=== PATIENT | female | born 1965 | race Caucasian/White ===

== ENCOUNTER 2018-11-30 17:43 | Inpatient (IN) | payer MEDICARE, OTHER ==
[~2018-11-30] VITALS: Ht 154.9 cm; Wt 76.7 kg
[2018-11-30 20:18] VITALS: BP 155/63
[2018-11-30] MEDS ORDERED: ACETAMINOPHEN 325 MG TABLET. PO PRN (21:00)
[2018-11-30] MEDS ORDERED: DEXTROSE 50% 25 GM / 50ML DISP.SYRIN. IV PRN (21:00)
[2018-11-30] MEDS: VANCOMYCIN PER PHARMACY MC PRN (21:02)
[2018-11-30] MEDS: fentaNYL PF VIAL 100 MCG/2 ML VIAL IV PRN (21:47)
[2018-11-30] MEDS: INSULIN GLARGINE 300 UNITS/3 ML INSULN.PEN. SQ SCH (21:53)
[2018-11-30] MEDS: MEROPENEM 1 GM in IV NORMAL SALINE 100ML 100 ML IV SCH (21:54)
[2018-11-30 22:46] LABS: HEMATOCRIT 31.2 % (36.0-47.0); HEMOGLOBIN 10.6 g/dL (12.0-15.5); RED BLOOD COUNT 3.68 x10^6/uL (3.50-5.40); RED CELL DISTRIBUTION WIDTH 13.8 % (11.5-14.5); WHITE BLOOD COUNT 9.8 x10^3/uL (4.0-11.0)
[2018-11-30 22:51] VITALS: BP 140/69
[2018-11-30 22:58] LABS: ALBUMIN 1.7 g/dL (3.4-5.0); ALBUMIN/GLOBULIN RATIO 0.3 (1.0-1.7); CALCIUM 8.1 mg/dL (8.5-10.1); GFR 57.6; TOTAL BILIRUBIN 0.3 mg/dL (0.2-1.0); TOTAL PROTEIN 6.6 g/dL (6.4-8.2)
[2018-12-01 02:46] VITALS: BP 150/70
[2018-12-01 05:54] LABS: CREATININE 0.8 mg/dL (0.6-1.0); GFR 74.5; VANC TR 12.8 mcg/mL (10.0-20.0)
[2018-12-01] MEDS: MEROPENEM 1 GM in IV NORMAL SALINE 100ML 100 ML IV SCH ×3 (06:01→20:10)
[2018-12-01] MEDS: VANCOMYCIN PER PHARMACY MC PRN ×2 (06:06→10:58)
--- NOTE | 2018-12-01 06:11 | NUR ---
Pharmacy Vancomycin Dosing Note S: Consulted to monitor and dose vancomycin started 11/29/18. O: TARAH ONEAL is a 53 year old F with Cellulitis THIGH ABSCESS . Other Antibiotics: MEROPENEM 1GM IV Q8H LABS: Last BUN: 21 Last Creatinine: 0.8 Creatinine Clearance: 74.6 mL/min Last WBC: 9.8 Last Platelets: Tmax (past 24 hours): 98.8 Microbiology: 11/29 BLOOD: NO GROWTH I/O: 1100/- Drug Levels: Last Trough level: 12.8 on 12/01/18 at 0500 Last dose given 11/30/18 at 1725 Vancomycin Dosing: Dosing Weight: Actual Target Trough: 10-20 A: Based on: Trough, Actual Wt and Improved CrCl P: 1. 12/01/18 Continue Vancomycin 1250 mg IV q12h 2. Follow up Trough level in 5 to 7 days as needed 3. Pharmacy will continue to monitor, follow and adjust therapy as needed. MANDEEP PALACIOS RPH, 12/01/18 0611 Signed: 12/01/18 at 0612 by MANDEEP PALACIOS RPH PHA
[2018-12-01] MEDS: fentaNYL PF VIAL 100 MCG/2 ML VIAL IV PRN ×3 (06:16→14:06)
[2018-12-01] MEDS: VANCOMYCIN 1.25 GM in IV NORMAL SALINE 250ML 250 ML IV SCH ×2 (06:17→18:23)
[2018-12-01 07:00] VITALS: BP 143/68
--- NOTE | 2018-12-01 07:14 | NUR ---
pt arrived from [place] at 2018, pt admit care done, refused pic taken of her abscess area, pt requested pic taken after shower in am, at 5am shower set up for pt and staff offered production assistant so she can be clean for possible procedure this am, pt refused again both bath and pic taken, RN re educated pt , still refused will have doc talk to her this am.
[2018-12-01] MEDS: INSULIN LISPRO 300 UNITS/3 ML INSULN.PEN. SQ SCH ×3 (08:00→17:00)
--- NOTE | 2018-12-01 08:10 | PDOC2 ---
JOVAN AVILA CLINICAL NURSING ASSISTANT 12/01/18 0810: CONSULT Date of Consult Date of Consult DATE: 12/01/18 TIME: 07:59 Reason for Consult Reason for Consult: thigh abscess Referring Physician Referring Physician: Dr Mullen Identification/Chief Complaint Chief Complaint abscess Source Source: Chart review, Patient History of Present Illness Reason for Visit: She was transferred from [facility] with abscess to left thigh and significant rash to extremities Abscess to left thigh for a week-- drains foul purulent drainage off and on. Has had problems with abscesses in past Past Medical History Pulmonary: Asthma, Other (sleep apnea) GI: Other (Hep B) Musculoskeletal: low back pain Rheumatologic: Fibromyalgia Renal/: UTI Endocrine: Diabetes Past Surgical History Past Surgical History: No pertinent history Family History Family History: Family History Unknown Social History <1 pack per day Drugs: Crystal meth Current Medications Current Medications Current Medications Fentanyl Citrate (Fentanyl 2ml Vial) 50 mcg PRN Q2HR PRN IV PAIN Last administered on 12/01/18at 06:16; Start 11/30/18 at 20:45 Vancomycin HCl (Vanco Per Pharmacy) 1 each PRN DAILY PRN MC SEE COMMENTS Last administered on 12/01/18at 06:06; Start 11/30/18 at 20:45 Ondansetron HCl (Zofran) 4 mg PRN Q6HRS PRN IV NAUSEA/VOMITING; Start 11/30/18 at 20:45 Vancomycin HCl (Vancomycin Trough Level) 1 each 1X ONCE MC Last administered on 12/01/18at 05:00; Start 12/01/18 at 05:00; Stop 12/01/18 at 05:01; Status DC Vancomycin HCl 1.25 gm/Sodium Chloride 250 ml @ 167 mls/hr Q12H IV Last administered on 12/01/18at 06:17; Start 12/01/18 at 05:30 Insulin Glargine (Lantus) 10 units QHS SQ Last administered on 11/30/18at 21:53 ; Start 11/30/18 at 22:00 Insulin Human Lispro (HumaLOG) 0-7 UNITS TIDWMEALS SQ ; Start 12/01/18 at 08:00 Dextrose (Dextrose 50%-Water Syringe) 12.5 gm PRN Q15MIN PRN IV SEE COMMENTS; Start 11/30/18 at 21:00 Meropenem 1 gm/ Sodium Chloride 100 ml @ 200 mls/hr Q8HRS IV Last administered on 12/01/18at 06:01; Start 11/30/18 at 22:00 Acetaminophen (Tylenol) 650 mg PRN Q6HRS PRN PO PAIN; Start 11/30/18 at 21:00 Allergies Allergies: Coded Allergies: Penicillins (Verified Allergy, Intermediate, 11/30/18) amoxicillin (Verified Allergy, Intermediate, 11/30/18) codeine (Verified Allergy, Intermediate, 11/30/18) ROS General: No: Chills, Other (fevers) PSYCHOLOGICAL ROS: No: Anxiety, Depression Eyes: No Blurry vision, No Double vision HEENT: No: Heacaches, Sore Throat Hematological and Lymphatic: No: Bleeding Problems, Blood Clots Respiratory: No: Cough, Shortness of breath Cardiovascular: No Chest Pain, No Palpitations Gastrointestinal: No Vomiting, No Diarrhea Genitourinary: No Dysuria, No Hematuria Musculoskeletal: Yes Muscle Pain Skin: Yes Other (see hpi) Physical Exam General: Oriented X3, No acute distress, Other (diffuse purple lesion rash ) HEENT: PERRLA Lungs: Clear to auscultation, Normal air movement Heart: Regular rate, Normal S1, Normal S2, No murmurs Abdomen: Soft, No tenderness Extremities: No clubbing, No cyanosis Skin: Other (left inner thigh with erythema, induration, fluctuance) Neuro: Normal speech, Sensation intact Psych/Mental Status: Mental status NL, Mood NL Vitals VITALS Vital Signs Date Time Temp Pulse Resp B/P (MAP) Pulse Ox O2 Delivery O2 Flow Rate FiO2 12/01/18 07:00 98.4 82 16 143/68 (93) 97 Room Air 98.4 Labs Labs Laboratory Tests Test 11/30/18 21:01 11/30/18 22:10 12/01/18 05:10 Glucose (Fingerstick) 255 mg/dL (70-99) White Blood Count 9.8 x10^3/uL (4.0-11.0) Red Blood Count 3.68 x10^6/uL (3.50-5.40) Hemoglobin 10.6 g/dL (12.0-15.5) Hematocrit 31.2 % (36.0-47.0) Mean Corpuscular Volume 85 fL (79-100) Mean Corpuscular Hemoglobin 29 pg (25-35) Mean Corpuscular Hemoglobin Concent 34 g/dL (31-37) Red Cell Distribution Width 13.8 % (11.5-14.5) Platelet Count 261 x10^3/uL (140-400) Sodium Level 134 mmol/L (136-145) Potassium Level 4.0 mmol/L (3.5-5.1) Chloride Level 99 mmol/L (98-107) Carbon Dioxide Level 26 mmol/L (21-32) Anion Gap 9 (6-14) Blood Urea Nitrogen 21 mg/dL (7-20) Creatinine 1.0 mg/dL (0.6-1.0) 0.8 mg/dL (0.6-1.0) Estimated GFR (Cockcroft-Gault) 57.6 74.5 BUN/Creatinine Ratio 21 (6-20) Glucose Level 273 mg/dL (70-99) Calcium Level 8.1 mg/dL (8.5-10.1) Total Bilirubin 0.3 mg/dL (0.2-1.0) Aspartate Amino Transf (AST/SGOT) 22 U/L (15-37) Alanine Aminotransferase (ALT/SGPT) 21 U/L (14-59) Alkaline Phosphatase 120 U/L (46-116) Total Protein 6.6 g/dL (6.4-8.2) Albumin 1.7 g/dL (3.4-5.0) Albumin/Globulin Ratio 0.3 (1.0-1.7) Vancomycin Level Trough 12.8 mcg/mL (10.0-20.0) Vancomycin Last Dose Date 11/30/18 Vancomycin Last Dose Time 1718 Laboratory Tests Test 11/30/18 21:01 11/30/18 22:10 12/01/18 05:10 Glucose (Fingerstick) 255 mg/dL (70-99) White Blood Count 9.8 x10^3/uL (4.0-11.0) Red Blood Count 3.68 x10^6/uL (3.50-5.40) Hemoglobin 10.6 g/dL (12.0-15.5) Hematocrit 31.2 % (36.0-47.0) Mean Corpuscular Volume 85 fL (79-100) Mean Corpuscular Hemoglobin 29 pg (25-35) Mean Corpuscular Hemoglobin Concent 34 g/dL (31-37) Red Cell Distribution Width 13.8 % (11.5-14.5) Platelet Count 261 x10^3/uL (140-400) Sodium Level 134 mmol/L (136-145) Potassium Level 4.0 mmol/L (3.5-5.1) Chloride Level 99 mmol/L (98-107) Carbon Dioxide Level 26 mmol/L (21-32) Anion Gap 9 (6-14) Blood Urea Nitrogen 21 mg/dL (7-20) Creatinine 1.0 mg/dL (0.6-1.0) 0.8 mg/dL (0.6-1.0) Estimated GFR (Cockcroft-Gault) 57.6 74.5 BUN/Creatinine Ratio 21 (6-20) Glucose Level 273 mg/dL (70-99) Calcium Level 8.1 mg/dL (8.5-10.1) Total Bilirubin 0.3 mg/dL (0.2-1.0) Aspartate Amino Transf (AST/SGOT) 22 U/L (15-37) Alanine Aminotransferase (ALT/SGPT) 21 U/L (14-59) Alkaline Phosphatase 120 U/L (46-116) Total Protein 6.6 g/dL (6.4-8.2) Albumin 1.7 g/dL (3.4-5.0) Albumin/Globulin Ratio 0.3 (1.0-1.7) Vancomycin Level Trough 12.8 mcg/mL (10.0-20.0) Vancomycin Last Dose Date 11/30/18 Vancomycin Last Dose Time 1718 Assessment/Plan Assessment/Plan left thigh abscess, likely will require I&D--will review with Dr Abebe, yessica NPO diffuse rash-derm consulted + meth use FRANCA ABEBE MD 12/01/18 1342: CONSULT Assessment/Plan Assessment/Plan Pt seen and examined; pt is 53 year old female who was transferred due to a left thigh abscess. She states it developed a week ago. The patient is unpleasant and angry about restating her history. She is refusing further discussion; PMH/PSH/ROS/SH as above; exam: alert, hostile, L thigh with induration, pain, swelling. A/P) L thigh abscess, recommend I and D in the OR. JOVAN AVILA APRN Dec 01, 2018 08:10 FRANCA ABEBE MD Dec 01, 2018 13:42
--- NOTE | 2018-12-01 08:38 | PDOC ---
Infectious Disease Note Vital Sign Vital Signs Vital Signs Date Time Temp Pulse Resp B/P (MAP) Pulse Ox O2 Delivery O2 Flow Rate FiO2 12/01/18 08:00 Room Air 12/01/18 07:00 98.4 82 16 143/68 (93) 97 98.4 Labs Lab Laboratory Tests Test 11/30/18 21:01 11/30/18 22:10 12/01/18 05:10 12/01/18 08:16 Glucose (Fingerstick) 255 mg/dL (70-99) 240 mg/dL (70-99) White Blood Count 9.8 x10^3/uL (4.0-11.0) Red Blood Count 3.68 x10^6/uL (3.50-5.40) Hemoglobin 10.6 g/dL (12.0-15.5) Hematocrit 31.2 % (36.0-47.0) Mean Corpuscular Volume 85 fL (79-100) Mean Corpuscular Hemoglobin 29 pg (25-35) Mean Corpuscular Hemoglobin Concent 34 g/dL (31-37) Red Cell Distribution Width 13.8 % (11.5-14.5) Platelet Count 261 x10^3/uL (140-400) Sodium Level 134 mmol/L (136-145) Potassium Level 4.0 mmol/L (3.5-5.1) Chloride Level 99 mmol/L (98-107) Carbon Dioxide Level 26 mmol/L (21-32) Anion Gap 9 (6-14) Blood Urea Nitrogen 21 mg/dL (7-20) Creatinine 1.0 mg/dL (0.6-1.0) 0.8 mg/dL (0.6-1.0) Estimated GFR (Cockcroft-Gault) 57.6 74.5 BUN/Creatinine Ratio 21 (6-20) Glucose Level 273 mg/dL (70-99) Calcium Level 8.1 mg/dL (8.5-10.1) Total Bilirubin 0.3 mg/dL (0.2-1.0) Aspartate Amino Transf (AST/SGOT) 22 U/L (15-37) Alanine Aminotransferase (ALT/SGPT) 21 U/L (14-59) Alkaline Phosphatase 120 U/L (46-116) Total Protein 6.6 g/dL (6.4-8.2) Albumin 1.7 g/dL (3.4-5.0) Albumin/Globulin Ratio 0.3 (1.0-1.7) Vancomycin Level Trough 12.8 mcg/mL (10.0-20.0) Vancomycin Last Dose Date 11/30/18 Vancomycin Last Dose Time 1718 Objective Assessment Left groin abscess Rash, ? vasculitis IVDU DM Fibromyalgia Plan Plan of Care vanc and meropenem I and D today supportive care ALLEN BA MD Dec 01, 2018 08:38
[2018-12-01] MEDS: ONDANSETRON PF 4 MG/2 ML VIAL. IV PRN (10:22)
[2018-12-01] MEDS ORDERED: IOHEXOL 300 MG/ML 100ML VIAL. IV ONE (10:45)
--- NOTE | 2018-12-01 10:56 | NUR ---
IP: Pt tx from [facility] with foul-smelling, draining thigh abscess. Pt to be in contact precautions until culture obtained and verified.
[2018-12-01 11:00] VITALS: BP 132/68
--- NOTE | 2018-12-01 11:20 | HP ---
ADMIT DATE: 12/01/2018 HISTORY OF PRESENT ILLNESS: The patient is a 53-year-old female patient who presented to Emergency Room of [facility] complaining of right thigh abscesses with new onset of rash. The patient has had intermittent abscess with drainage on her left upper thigh for at least several days. When she arrived to the Emergency Room, she had one of them draining with foul-smelling odor. She states that she has these before. She has been diagnosed with MRSA in the past. Her other concern is that she developed a rash all over in her legs starting on the day of admission. It has involved her arms and extends her abdomen and back. It is red and purplish and confluent in some areas closer to the abscess, although it is not itchy. The patient has not been taking any medications. She is only using mouthwash and has not been on any prescribed or [id number] medications. She was admitted and was started on IV vancomycin as well as meropenem together with her insulin and pain medication. As it became clear that this abscess needed to be incised and drained, a decision was made to transfer her to [facility] to consult the surgical team, the Infectious Disease and for her to rash, it looks like target lesion or some form of erythema multiforme. We consulted Dr. Leslie Robbins. PAST MEDICAL HISTORY: Her past medical history is significant for type 2 diabetes mellitus that is insulin requiring. She has a previous episode of acute hepatitis B that was treated. She is also known to have bronchial asthma, osteoarthritis, fibromyalgia and peripheral neuropathy. PAST SURGICAL HISTORY: Significant for pilonidal cyst resection. ALLERGIES: SHE IS ALLERGIC TO PENICILLIN, AMOXICILLIN AND CODEINE. MEDICATIONS: She is transferred from [facility] to continue on vancomycin 1.25 g IV q.12 hourly, meropenem 1 gram IV q.8 hourly, Lantus insulin 10 units at bedtime, Tylenol 650 mg every 6 hours, ondansetron 4 mg IV every 4 hours and fentanyl citrate 50 mcg IV every 2 hours, together with insulin sliding scale. FAMILY HISTORY: She has one brother who is younger and seemingly healthy. Her father at the age of 39 because of infection and mother at age of 66 because of lung cancer. SOCIAL HISTORY: She is single, lives with a friend. She smokes only about 4-5 cigarettes a day. She does not drink alcohol or use any recreational drugs. She is on disability. REVIEW OF SYSTEMS: As per history of present illness. PHYSICAL EXAMINATION: GENERAL: When I examined her this morning, she was resting flat, comfortably in bed, in no apparent distress. She was complaining of nausea, but no vomiting. She apparently was seen by the surgical team and she was scheduled for incision and drainage of the left thigh abscesses. When I examined her, she looked pale, but not jaundiced or cyanosed from thyromegaly. No jugular venous distention. No lower limb edema. VITAL SIGNS: Her heart rate was 82, blood pressure was 143/68, temperature was 98.4, respiratory rate was 16 and oxygen saturation was 97%. HEENT: Examination of the head, eyes, ears, nose and throat showed normocephalic, atraumatic. NECK: Supple. HEART: Showed normal first and second heart sounds. No gallop, rub or murmur. CHEST: Clear to auscultation. No crepitation or rhonchi. ABDOMEN: Distended, soft and nontender. No guarding or rigidity. No organomegaly. All hernial orifices intact. Bowel sounds normal. NEUROLOGIC: She was awake, alert, responding appropriately. All cranial nerves intact. She moved extremities without difficulty. SKIN: Examination of the skin showed she has multiple abscesses on the upper inner aspect of her left thigh and she has diffuse maculopapular rash on her upper extremities and lower extremities. It is confluent on the medial aspect of the left thigh. The rash is extensive on the abdomen and her back. LABORATORY DATA: Her lab work showed a white cell count of 9800, hemoglobin 11, hematocrit 31, MCV 85 and platelet count 261,000. Her chemistry showed a serum sodium 134, potassium 4, chloride 99, bicarbonate 26, anion gap of 9, BUN 21, creatinine was 1, estimated GFR was 57, her blood sugar was 273 and calcium was 8.1. Total bilirubin, AST and ALT were normal. Alkaline phosphatase slightly elevated. Total protein was 6.6. Albumin was 1.7. Her vancomycin trough level was 12.8. SUMMARY: In summary, this is a 53-year-old female patient who was transferred from [facility] with left groin abscesses, for which she is on IV antibiotics in the form of vancomycin and meropenem. She is scheduled for incision and drainage by the surgical team. She has type 2 diabetes, fibromyalgia and bronchial asthma. She has extensive maculopapular rash that is confluent on the inner aspect of her left thigh. The patient's platelet counts are normal. Her kidney functions are also normal, so I am not sure whether this is a Henoch-Schonlein purpura or some other form of vasculitis, for which we have already consulted Dr. Leslie Robbins to assist with her management. ELEONORA GUERRA MD DR: KASSIDY/zohreh JOB#: [id number] / [id number]
[2018-12-01] MEDS ORDERED: ONDANSETRON PF 4 MG/2 ML VIAL. IV PRN ×2 (12:30→16:30)
[2018-12-01] MEDS ORDERED: LIDOCAINE 1%/EPI 1:100,000 20 ML VIAL. ONE (15:22)
[2018-12-01] MEDS ORDERED: fentaNYL PF VIAL 100 MCG/2 ML VIAL ONE ×2 (15:27→16:31)
[2018-12-01] MEDS ORDERED: LIDOCAINE 2% PF 5 ML VIAL. ONE (15:28)
[2018-12-01] MEDS ORDERED: DEXAMETHASONE SOD PHOS 20 MG/5 ML VIAL. ONE (15:28)
[2018-12-01] MEDS ORDERED: PROPOFOL 20 ML IV ONE (15:28)
[2018-12-01] MEDS ORDERED: ONDANSETRON PF 4 MG/2 ML VIAL. ONE (15:28)
--- NOTE | 2018-12-01 15:39 | NUR ---
Wound care; Pt is in surgery getting I&D, will follow up on 12/02/18
--- NOTE | 2018-12-01 16:21 | PDOC4 ---
Operative Note Operative Note Operative Note: Preoperative Diagnosis: Left thigh abscess Postoperative Diagnosis: Same Procedure: Incision and drainage of left thigh abscess Surgeon: Andrae Anesthesia: Gen. EBL: 25 mL Specimen: Cultures to microbiology Drains: None Complications: None Indication: The patient is a 53 female who reported with a sizable left thigh abscess. The plan is to proceed to the operating room for incision and drainage. The details and risks of surgery were discussed. The risks include bleeding, infection, recurrence, pain, scar tissue, potential need for additional surgery or procedure. She understands and would like to proceed. Description: The patient was taken to the operating room and placed supine on the operating table. Gen. anesthesia was performed. The left thigh was prepped with Betadine and draped in a standard surgical manner. Along the proximal medial aspect there was a sizable area of induration. Close to the labia there was a portion of the skin that'll had ulcerated and was draining purulent fluid. Cultures of the fluid were obtained and sent to microbiology. Over a larger area of induration an incision was made with a scalpel. There was return of additional purulent fluid. The abscess cavity was fully drained and then irrigated with sterile saline. Hemostasis was achieved with cautery. The wound was then packed with sterile gauze and a dressing was applied. The patient tolerated the procedure well and was sent to the recovery room in stable condition. At the end of the case all counts were correct. FRANCA BOBBY MD Dec 01, 2018 16:21
[2018-12-01] MEDS ORDERED: SEVOFLURANE 31 TO 60 MINUTES. IH ONE (16:25)
[2018-12-01] MEDS ORDERED: fentaNYL PF VIAL 100 MCG/2 ML VIAL IV PRN ×2 (16:30)
[2018-12-01] MEDS ORDERED: MORPHINE SULFATE 2 MG/ML VIAL. IV PRN (16:30)
[2018-12-01] MEDS ORDERED: IV RINGERS,LACTATED 1000ML 1,000 ML IV SCH (16:30)
[2018-12-01] MEDS ORDERED: PROCHLORPERAZINE 10 MG/2 ML VIAL. IV PRN (16:30)
[2018-12-01] MEDS ORDERED: HYDROmorphone 2 MG/ML VIAL IV PRN (16:30)
[2018-12-01] MEDS ORDERED: LIDOCAINE 1% PF 2 ML VIAL. ID PRN (16:30)
[2018-12-01] MEDS ORDERED: PROCHLORPERAZINE 10 MG/2 ML VIAL. ONE (16:31)
[2018-12-01] MEDS ORDERED: oxyCODONE/APAP 5/325 1 TAB TABLET PO PRN (16:45)
[2018-12-01] MEDS ORDERED: CONTRAST GIVEN. MC PRN (16:45)
--- NOTE | 2018-12-01 17:30 | NUR ---
Pt returning from PACU. Pt is A&O X4 but drowsy, IV fluids infusing, dressing CDI on left thigh. Pt denies pain. Water pitcher filled. Meal tray ordered. Call light within reach. Will continue to monitor.
[2018-12-01 19:00] VITALS: BP 157/59
[2018-12-01] MEDS: LACTOBACILLUS RHAMNOSUS GG 1 CAPSULE. PO SCH (20:10)
[2018-12-01] MEDS: INSULIN GLARGINE 300 UNITS/3 ML INSULN.PEN. SQ SCH (21:26)
[2018-12-01] MEDS ORDERED: INSULIN LISPRO 300 UNITS/3 ML INSULN.PEN. SQ ONE (21:30)
--- NOTE | 2018-12-01 22:17 | CONS ---
DATE OF CONSULTATION: 12/01/2018 REQUESTING PHYSICIAN: Dr. Mullen. REASON FOR CONSULTATION: Groin/thigh abscess. HISTORY OF PRESENT ILLNESS: This is a 53-year-old female with a history of drug use, who was transferred from [facility]. The patient was diagnosed having left thigh/groin abscess and I and D has been planned. This started about a week ago and she also started having rash a week ago she says without taking any medication. The patient denies any fever, chills, nausea, vomiting, diarrhea, chest pain, shortness of breath, abdominal pain, urinary symptoms or bowel symptoms. The patient has been on vancomycin and meropenem. PAST MEDICAL HISTORY: Positive for diabetes mellitus, fibromyalgia, history of UTI, low back pain, hepatitis B and asthma. SOCIAL HISTORY: Positive for smoking, positive for drug use including IV drug use with crystal meth and also smokes marijuana. No alcohol use. ALLERGIES: Listed as allergic to PENICILLIN or AMOXICILLIN, it causes yeast infection, that is not true allergy. CURRENT MEDICATIONS: Reviewed. The patient is on vancomycin and meropenem. REVIEW OF SYSTEMS: As per HPI, all other systems reviewed are negative. PHYSICAL EXAMINATION: GENERAL: Alert and oriented female, not in distress. VITAL SIGNS: Stable, afebrile. HEENT: NAD. NECK: Supple, no JVP, no lymphadenopathy. LUNGS: Clear. HEART: S1, S2 regular. ABDOMEN: Benign. EXTREMITIES: No edema, cyanosis. SKIN: The patient does have an erythematous rash all over the body, has a look of vasculitis. In the groin area, almost at the inguinal fold, just besides that anterior-superior proximal thigh, there is a large area of induration with tenderness. There is no pus pointing. There is no open area. NEUROLOGIC: Alert, awake female, no focal neurologic deficit. LABORATORY DATA: White count is normal. BUN and creatinine is normal. IMPRESSION: 1. Left inguinal, almost proximal, superior medial thigh on the left side skin and soft tissue infection with likely abscess. Incision and drainage has been planned for today. 2. Diffuse rash all over the place, which looks like vasculitis, multiple reasons for her to have rash including intravenous drug use. 3. Intravenous drug use with meth. 4. Diabetes. 5. Asthma. 6. Fibromyalgia. RECOMMENDATIONS: Recommend continuing vancomycin and meropenem for the time being. I and D today. We will check the culture, adjust, supportive care and we will continue to follow. Thank you very much, Dr. Mullen, for giving me the opportunity to participate in this patient's care. ALLEN BA MD DR: MARIELA/zohreh JOB#: [id number] / [id number]
[2018-12-01 22:27] VITALS: BP 164/53
[2018-12-02] MEDS: fentaNYL PF VIAL 100 MCG/2 ML VIAL IV PRN (00:28)
[2018-12-02] MEDS: ONDANSETRON PF 4 MG/2 ML VIAL. IV PRN (00:28)
[2018-12-02 02:44] VITALS: BP 166/69
[2018-12-02] MEDS: oxyCODONE/APAP 5/325 1 TAB TABLET PO PRN ×3 (03:49→17:29)
[2018-12-02] MEDS: VANCOMYCIN 1.25 GM in IV NORMAL SALINE 250ML 250 ML IV SCH ×2 (04:56→17:29)
[2018-12-02 05:35] LABS: CALCIUM 8.7 mg/dL (8.5-10.1); CREATININE 0.7 mg/dL (0.6-1.0); GFR 86.9; POTASSIUM 4.3 mmol/L (3.5-5.1)
[2018-12-02] MEDS: MEROPENEM 1 GM in IV NORMAL SALINE 100ML 100 ML IV SCH (06:09)
[2018-12-02 07:00] VITALS: BP 160/72
--- NOTE | 2018-12-02 07:38 | PDOC ---
PROGRESS NOTES Subjective Subjective sleeping but arouses, no major complaints Objective Objective Vital Signs Date Time Temp Pulse Resp B/P (MAP) Pulse Ox O2 Delivery O2 Flow Rate FiO2 12/02/18 04:49 20 98 Room Air 12/02/18 03:49 10.0 12/02/18 02:44 98.7 76 166/69 (101) 98.7 Intake and Output 12/02/18 07:00 Intake Total 450 ml Output Total 25 ml Balance 425 ml Intake Oral 450 ml Output Estimated Blood Loss 25 ml # Voids 1 Physical Exam Physical Exam dressing intact Plan Plan of Care Dressing changes per wound care team, await their FU today Comment Review of Relevant I have reviewed the following items brianna (where applicable) has been applied. Labs Laboratory Tests Test 11/30/18 21:01 11/30/18 22:10 12/01/18 05:10 12/01/18 08:16 Glucose (Fingerstick) 255 mg/dL (70-99) 240 mg/dL (70-99) White Blood Count 9.8 x10^3/uL (4.0-11.0) Red Blood Count 3.68 x10^6/uL (3.50-5.40) Hemoglobin 10.6 g/dL (12.0-15.5) Hematocrit 31.2 % (36.0-47.0) Mean Corpuscular Volume 85 fL (79-100) Mean Corpuscular Hemoglobin 29 pg (25-35) Mean Corpuscular Hemoglobin Concent 34 g/dL (31-37) Red Cell Distribution Width 13.8 % (11.5-14.5) Platelet Count 261 x10^3/uL (140-400) Sodium Level 134 mmol/L (136-145) Potassium Level 4.0 mmol/L (3.5-5.1) Chloride Level 99 mmol/L (98-107) Carbon Dioxide Level 26 mmol/L (21-32) Anion Gap 9 (6-14) Blood Urea Nitrogen 21 mg/dL (7-20) Creatinine 1.0 mg/dL (0.6-1.0) 0.8 mg/dL (0.6-1.0) Estimated GFR (Cockcroft-Gault) 57.6 74.5 BUN/Creatinine Ratio 21 (6-20) Glucose Level 273 mg/dL (70-99) Calcium Level 8.1 mg/dL (8.5-10.1) Total Bilirubin 0.3 mg/dL (0.2-1.0) Aspartate Amino Transf (AST/SGOT) 22 U/L (15-37) Alanine Aminotransferase (ALT/SGPT) 21 U/L (14-59) Alkaline Phosphatase 120 U/L (46-116) Total Protein 6.6 g/dL (6.4-8.2) Albumin 1.7 g/dL (3.4-5.0) Albumin/Globulin Ratio 0.3 (1.0-1.7) Vancomycin Level Trough 12.8 mcg/mL (10.0-20.0) Vancomycin Last Dose Date 11/30/18 Vancomycin Last Dose Time 1718 Test 12/01/18 11:24 12/01/18 15:42 12/01/18 17:57 12/01/18 20:36 Glucose (Fingerstick) 201 mg/dL (70-99) 231 mg/dL (70-99) 229 mg/dL (70-99) 359 mg/dL (70-99) Test 12/02/18 03:00 12/02/18 04:05 Sodium Level 133 mmol/L (136-145) Potassium Level 4.3 mmol/L (3.5-5.1) Chloride Level 98 mmol/L (98-107) Carbon Dioxide Level 25 mmol/L (21-32) Anion Gap 10 (6-14) Blood Urea Nitrogen 24 mg/dL (7-20) Creatinine 0.7 mg/dL (0.6-1.0) Estimated GFR (Cockcroft-Gault) 86.9 Glucose Level 346 mg/dL (70-99) Calcium Level 8.7 mg/dL (8.5-10.1) Glucose (Fingerstick) 315 mg/dL (70-99) Laboratory Tests Test 12/01/18 08:16 12/01/18 11:24 12/01/18 15:42 12/01/18 17:57 Glucose (Fingerstick) 240 mg/dL (70-99) 201 mg/dL (70-99) 231 mg/dL (70-99) 229 mg/dL (70-99) Test 12/01/18 20:36 12/02/18 03:00 12/02/18 04:05 Glucose (Fingerstick) 359 mg/dL (70-99) 315 mg/dL (70-99) Sodium Level 133 mmol/L (136-145) Potassium Level 4.3 mmol/L (3.5-5.1) Chloride Level 98 mmol/L (98-107) Carbon Dioxide Level 25 mmol/L (21-32) Anion Gap 10 (6-14) Blood Urea Nitrogen 24 mg/dL (7-20) Creatinine 0.7 mg/dL (0.6-1.0) Estimated GFR (Cockcroft-Gault) 86.9 Glucose Level 346 mg/dL (70-99) Calcium Level 8.7 mg/dL (8.5-10.1) Medications Current Medications Fentanyl Citrate (Fentanyl 2ml Vial) 50 mcg PRN Q2HR PRN IV PAIN Last administered on 12/02/18at 00:28; Start 11/30/18 at 20:45 Vancomycin HCl (Vanco Per Pharmacy) 1 each PRN DAILY PRN MC SEE COMMENTS Last administered on 12/01/18at 10:58; Start 11/30/18 at 20:45 Ondansetron HCl (Zofran) 4 mg PRN Q6HRS PRN IV NAUSEA/VOMITING Last administered on 12/02/18at 00:28; Start 11/30/18 at 20:45 Vancomycin HCl (Vancomycin Trough Level) 1 each 1X ONCE MC Last administered on 12/01/18at 05:00; Start 12/01/18 at 05:00; Stop 12/01/18 at 05:01; Status DC Vancomycin HCl 1.25 gm/Sodium Chloride 250 ml @ 167 mls/hr Q12H IV Last administered on 12/02/18at 04:56; Start 12/01/18 at 05:30 Insulin Glargine (Lantus) 10 units QHS SQ Last administered on 12/01/18at 21:26 ; Start 11/30/18 at 22:00 Insulin Human Lispro (HumaLOG) 0-7 UNITS TIDWMEALS SQ ; Start 12/01/18 at 08:00 Dextrose (Dextrose 50%-Water Syringe) 12.5 gm PRN Q15MIN PRN IV SEE COMMENTS; Start 11/30/18 at 21:00 Meropenem 1 gm/ Sodium Chloride 100 ml @ 200 mls/hr Q8HRS IV Last administered on 12/02/18at 06:09; Start 11/30/18 at 22:00 Acetaminophen (Tylenol) 650 mg PRN Q6HRS PRN PO PAIN; Start 11/30/18 at 21:00 Lactobacillus Rhamnosus (Culturelle) 1 cap BID PO Last administered on at 20:10; Start 12/01/18 at 21:00 Lidocaine/ Epinephrine (LIDOCAINE 1%-EPI 1:100,000 Multi-Dose) 20 ml STK-MED ONCE .ROUTE ; Start 12/01/18 at 15:22; Stop 12/01/18 at 15:23; Status DC Fentanyl Citrate (Fentanyl 2ml Vial) 100 mcg STK-MED ONCE .ROUTE ; Start at 15:27; Stop 12/01/18 at 15:28; Status DC Lidocaine HCl (Lidocaine Pf 2% Vial) 5 ml STK-MED ONCE .ROUTE ; Start 12/01/18 at 15:28; Stop 12/01/18 at 15:29; Status DC Propofol 20 ml @ As Directed STK-MED ONCE IV ; Start 12/01/18 at 15:28; Stop at 15:29; Status DC Ondansetron HCl (Zofran) 4 mg STK-MED ONCE .ROUTE ; Start 12/01/18 at 15:28; Stop 12/01/18 at 15:29; Status DC Dexamethasone Sodium Phosphate (Decadron) 20 mg STK-MED ONCE .ROUTE ; Start at 15:28; Stop 12/01/18 at 15:29; Status DC Oxycodone/ Acetaminophen (Percocet 5/325) 1 tab PRN Q4HRS PRN PO MODERATE PAIN Last administered on 12/02/18at 03:49; Start 12/01/18 at 16:30 Sevoflurane (Ultane) 30 ml STK-MED ONCE IH ; Start 12/01/18 at 16:25; Stop 12/01 at 16:26; Status DC Fentanyl Citrate (Fentanyl 2ml Vial) 100 mcg STK-MED ONCE .ROUTE ; Start at 16:31; Stop 12/01/18 at 16:32; Status DC Iohexol (Omnipaque 300 Mg/ml) 75 ml 1X ONCE IV ; Start 12/01/18 at 10:45; Stop 12/01/18 at 16:37; Status DC Ondansetron HCl (Zofran) 4 mg PRN Q8HRS PRN IV NAUSEA/VOMITING; Start 12/01/18 at 12:30; Stop 12/01/18 at 16:38; Status DC Ondansetron HCl (Zofran) 4 mg PRN Q6HRS PRN IV NAUSEA/VOMITING; Start 12/01/18 at 16:30; Stop 12/01/18 at 22:00; Status DC Fentanyl Citrate (Fentanyl 2ml Vial) 25 mcg PRN Q5MIN PRN IV MILD PAIN; Start 12/01/18 at 16:30; Stop 12/01/18 at 22:00; Status DC Fentanyl Citrate (Fentanyl 2ml Vial) 50 mcg PRN Q5MIN PRN IV MODERATE TO SEVERE PAIN Last administered on 12/01/18at 16:36; Start 12/01/18 at 16:30; Stop 12/01/18 at 22:00; Status DC Morphine Sulfate (Morphine Sulfate) 1 mg PRN Q10MIN PRN IV SEVERE PAIN; Start 12/01/18 at 16:30; Stop 12/01/18 at 16:44; Status DC Ringer's Solution 1,000 ml @ 30 mls/hr Q24H IV ; Start 12/01/18 at 16:30; Stop 12/02/18 at 04:29; Status DC Lidocaine HCl (Xylocaine-Mpf 1% 2ml Vial) 2 ml PRN 1X PRN ID PRIOR TO IV START ; Start 12/01/18 at 16:30; Stop 12/01/18 at 22:00; Status DC Hydromorphone HCl (Dilaudid) 0.5 mg PRN Q10MIN PRN IV SEV PAIN, Second choice; Start 12/01/18 at 16:30; Stop 12/01/18 at 16:44; Status DC Prochlorperazine Edisylate (Compazine) 5 mg PACU PRN PRN IV NAUSEA, MRX1 Last administered on 12/01/18at 16:36; Start 12/01/18 at 16:30; Stop 12/01/18 at 22:00 ; Status DC Oxycodone/ Acetaminophen (Percocet 5/325) 2 tab PRN Q4HRS PRN PO SEVERE PAIN; Start 12/01/18 at 16:45 Prochlorperazine Edisylate (Compazine) 10 mg STK-MED ONCE .ROUTE ; Start at 16:31; Stop 12/01/18 at 16:32; Status DC Info (CONTRAST GIVEN -- Rx MONITORING) 1 each PRN DAILY PRN MC SEE COMMENTS; Start 12/01/18 at 16:45; Stop 12/03/18 at 16:44 Insulin Human Lispro (HumaLOG) 4 units 1X ONCE SQ Last administered on at 21:27; Start 12/01/18 at 21:30; Stop 12/01/18 at 21:31; Status DC Vitals/I & O Vital Sign - Last 24 Hours 12/01/18 12/01/18 12/01/18 12/01/18 08:00 10:44 11:00 14:06 Temp 97.6 97.6 Pulse 82 Resp 16 B/P (MAP) 132/68 (89) Pulse Ox 97 O2 Delivery Room Air Room Air Room Air Room Air 12/01/18 12/01/18 12/01/18 12/01/18 14:29 16:18 16:18 16:33 Temp 97.4 97.5 97.4 97.5 Pulse 75 72 76 Resp 18 14 16 B/P (MAP) 153/74 116/65 122/55 Pulse Ox 98 96 99 O2 Delivery Room Air Simple Mask Mask Room Air O2 Flow Rate 10 10 12/01/18 12/01/18 12/01/18 12/01/18 16:36 16:48 19:00 20:00 Temp 97.5 98.1 97.5 98.1 Pulse 76 83 Resp 14 14 18 B/P (MAP) 135/64 157/59 (91) Pulse Ox 99 98 98 O2 Delivery Simple Mask Room Air Room Air Room Air O2 Flow Rate 10.0 12/01/18 12/02/18 12/02/18 12/02/18 22:27 00:28 00:58 02:44 Temp 98.6 98.7 98.6 98.7 Pulse 80 76 Resp 16 20 20 16 B/P (MAP) 164/53 (90) 166/69 (101) Pulse Ox 98 98 98 98 O2 Delivery Room Air Room Air Room Air Room Air O2 Flow Rate 10.0 12/02/18 12/02/18 03:49 04:49 Resp 20 20 Pulse Ox 98 98 O2 Delivery Room Air Room Air O2 Flow Rate 10.0 Intake and Output 12/01/18 12/01/18 12/02/18 15:00 23:00 07:00 Intake Total 450 ml Output Total 25 ml Balance -25 ml 450 ml FRANCA BOBBY MD Dec 02, 2018 07:38
--- NOTE | 2018-12-02 08:11 | PDOC ---
Infectious Disease Note Subjective Subjective feeling ok ROS ROS no n/v/d/sob Vital Sign Vital Signs Vital Signs Date Time Temp Pulse Resp B/P (MAP) Pulse Ox O2 Delivery O2 Flow Rate FiO2 12/02/18 04:49 20 98 Room Air 12/02/18 03:49 10.0 12/02/18 02:44 98.7 76 166/69 (101) 98.7 Physical Exam PHYSICAL EXAM GENERAL: Alert and oriented female, not in distress. VITAL SIGNS: Stable, afebrile. HEENT: NAD. NECK: Supple, no JVP, no lymphadenopathy. LUNGS: Clear. HEART: S1, S2 regular. ABDOMEN: Benign. EXTREMITIES: No edema, cyanosis. SKIN: The patient does have an erythematous rash all over the body, has a look of vasculitis. In the groin area, almost at the inguinal fold, just besides that anterior-superior proximal thigh, there is a large area of induration with tenderness. There is no pus pointing. There is no open area. NEUROLOGIC: Alert, awake female, no focal neurologic deficit. Labs Lab Laboratory Tests Test 12/01/18 08:16 12/01/18 11:24 12/01/18 15:42 12/01/18 16:39 Glucose (Fingerstick) 240 mg/dL (70-99) 201 mg/dL (70-99) 231 mg/dL (70-99) 240 mg/dL (70-99) Test 12/01/18 17:57 12/01/18 20:36 12/02/18 03:00 12/02/18 04:05 Glucose (Fingerstick) 229 mg/dL (70-99) 359 mg/dL (70-99) 315 mg/dL (70-99) Sodium Level 133 mmol/L (136-145) Potassium Level 4.3 mmol/L (3.5-5.1) Chloride Level 98 mmol/L (98-107) Carbon Dioxide Level 25 mmol/L (21-32) Anion Gap 10 (6-14) Blood Urea Nitrogen 24 mg/dL (7-20) Creatinine 0.7 mg/dL (0.6-1.0) Estimated GFR (Cockcroft-Gault) 86.9 Glucose Level 346 mg/dL (70-99) Calcium Level 8.7 mg/dL (8.5-10.1) Test 12/02/18 07:18 Glucose (Fingerstick) 299 mg/dL (70-99) Objective Assessment Left groin abscess s/p I and D 12/01/18 Rash, ? vasculitis IVDU DM Fibromyalgia Plan Plan of Care vanc and meropenem G stain and culture pending supportive care ALLEN BA MD Dec 02, 2018 08:11
[2018-12-02] MEDS: LACTOBACILLUS RHAMNOSUS GG 1 CAPSULE. PO SCH ×2 (08:56→21:11)
[2018-12-02] MEDS: INSULIN LISPRO 300 UNITS/3 ML INSULN.PEN. SQ SCH ×5 (08:59→17:34)
[2018-12-02 11:00] VITALS: BP 150/63
--- NOTE | 2018-12-02 14:15 | NUR ---
SW following. Discussed with RN. Pt is from home, will likely need home health upon discharge. Still awaiting cultures to determine antibiotics. SW will continue to follow.
[2018-12-02 15:00] VITALS: BP 116/60
--- NOTE | 2018-12-02 15:38 | NUR ---
Wound Care Wound care consult for left thigh/labial abscess. Abscess was I&D on 12/[address] Abebe. Removed packing, pictured and measured wound and redressed with Aquacel Ag rope covered with ABD pad and Hypafix tape and Tegaderm, recommend to change eery 2-3 days. Pt educated on WC instructions and PU prevention. Pt will follow up in C and wants home health to assist with wound care as well if possible. No other wounds noted on full skin inspection. WC will continue to follow for possible changes.
[2018-12-02] MEDS: VANCOMYCIN PER PHARMACY MC PRN (16:03)
[2018-12-02 19:00] VITALS: BP 96/59
[2018-12-02] MEDS ORDERED: INSULIN GLARGINE 300 UNITS/3 ML INSULN.PEN. SQ SCH (21:00)
--- NOTE | 2018-12-02 22:39 | PN ---
DATE: 12/02/2018 SUBJECTIVE: The patient is resting flat, comfortably in bed, in no apparent distress. On questioning her, she denied any complaint. The nursing staff did not voice any concern and stated that she had an uneventful night. PHYSICAL EXAMINATION: GENERAL: When I examined her, she looked pale. No jaundice, cyanosis, or thyromegaly. No jugular venous distension. No lower limb edema. VITAL SIGNS: Her heart rate was 70, blood pressure 160/72, temperature was 97.8, respiratory rate 20, oxygen saturation was 99% on room air. SKIN: She continued to have extensive maculopapular rash all over, more confluent on the inner aspect of thigh. Her abscess was incised and drained, covered with dressing. Her intake over the last 24 hours and output are incompletely recorded. LABORATORY DATA: As of yesterday showed a white cell count 9800, hemoglobin 10, hematocrit 31, MCV 85 and platelet count 261,000. Her chemistry as of this morning showed a serum sodium 133, potassium 4.3, chloride 98, bicarbonate 25, anion gap of 10, BUN 24, creatinine 0.7, estimated GFR was 87 mL per minute. Her glucose was 346, calcium was 8.7. ASSESSMENT: 1. Right groin abscess, status post incision and drainage for which she continues to be on IV vancomycin and meropenem. 2. Extensive rash with possible vasculitis. 3. Type 2 diabetes mellitus, seems to be suboptimally controlled. 4. Fibromyalgia. 5. Intravenous drug use. PLAN: To continue with wound care and daily dressing changes. Continue with IV antibiotic. Her blood sugar is suboptimally controlled. I will increase her Lantus to 15 units and increase her sliding scale to high algorithm. ELEONORA GUERRA MD DR: KASSIDY/zohreh JOB#: [id number] / [id number]
[2018-12-02 23:00] VITALS: BP 135/55
[2018-12-03 00:11] LABS: HEMOGLOBIN A1C 12.4 % (4.8-5.6)
[2018-12-03 03:00] VITALS: BP 123/47
[2018-12-03] MEDS: VANCOMYCIN 1.25 GM in IV NORMAL SALINE 250ML 250 ML IV SCH ×2 (06:05→17:13)
[2018-12-03 07:00] VITALS: BP 118/59
--- NOTE | 2018-12-03 08:43 | PDOC ---
Infectious Disease Note Subjective Subjective feeling ok ROS ROS no n/v/d/sob Vital Sign Vital Signs Vital Signs Date Time Temp Pulse Resp B/P (MAP) Pulse Ox O2 Delivery O2 Flow Rate FiO2 12/03/18 07:00 98.6 68 18 118/59 (78) 96 Room Air 98.6 Physical Exam PHYSICAL EXAM GENERAL: Alert and oriented female, not in distress. VITAL SIGNS: Stable, afebrile. HEENT: NAD. NECK: Supple, no JVP, no lymphadenopathy. LUNGS: Clear. HEART: S1, S2 regular. ABDOMEN: Benign. EXTREMITIES: No edema, cyanosis. SKIN: The patient does have an erythematous rash all over the body, has a look of vasculitis. In the groin area, almost at the inguinal fold, just besides that anterior-superior proximal thigh, there is a large area of induration with tenderness. There is no pus pointing. There is no open area. NEUROLOGIC: Alert, awake female, no focal neurologic deficit. Labs Lab Laboratory Tests Test 12/02/18 11:15 12/02/18 16:26 12/02/18 20:39 Glucose (Fingerstick) 292 mg/dL (70-99) 193 mg/dL (70-99) 152 mg/dL (70-99) Micro Microbiology 12/01/18 Gram Stain - Final, Complete Objective Assessment Left groin abscess s/p I and D 12/01/18 Rash, ? vasculitis IVDU DM Fibromyalgia Plan Plan of Care vanc G stain and culture , staph supportive care ALLEN BA MD Dec 03, 2018 08:43
[2018-12-03] MEDS: LACTOBACILLUS RHAMNOSUS GG 1 CAPSULE. PO SCH ×2 (09:28→21:50)
[2018-12-03] MEDS: oxyCODONE/APAP 5/325 1 TAB TABLET PO PRN ×3 (09:28→21:50)
[2018-12-03] MEDS: INSULIN LISPRO 300 UNITS/3 ML INSULN.PEN. SQ SCH ×6 (09:32→17:19)
[2018-12-03 11:00] VITALS: BP 107/49
--- NOTE | 2018-12-03 11:40 | PDOC ---
SURGICAL PROGRESS NOTE Subjective some pain tolerating diet tired Vital Signs Vital Signs Date Time Temp Pulse Resp B/P (MAP) Pulse Ox O2 Delivery O2 Flow Rate FiO2 12/03/18 09:28 Room Air 12/03/18 07:00 98.6 68 18 118/59 (78) 96 98.6 I&O Intake and Output 12/03/18 07:00 Intake Total 900 ml Balance 900 ml Intake Oral 900 ml # Voids 5 General: Cooperative, No acute distress Skin: Other (less erythema to groin, packing in place) Labs Laboratory Tests Test 12/01/18 15:42 12/01/18 16:39 12/01/18 17:57 12/01/18 20:36 Glucose (Fingerstick) 231 mg/dL (70-99) 240 mg/dL (70-99) 229 mg/dL (70-99) 359 mg/dL (70-99) Test 12/02/18 03:00 12/02/18 04:05 12/02/18 07:18 12/02/18 11:15 Sodium Level 133 mmol/L (136-145) Potassium Level 4.3 mmol/L (3.5-5.1) Chloride Level 98 mmol/L (98-107) Carbon Dioxide Level 25 mmol/L (21-32) Anion Gap 10 (6-14) Blood Urea Nitrogen 24 mg/dL (7-20) Creatinine 0.7 mg/dL (0.6-1.0) Estimated GFR (Cockcroft-Gault) 86.9 Glucose Level 346 mg/dL (70-99) Hemoglobin A1c 12.4 % (4.8-5.6) Calcium Level 8.7 mg/dL (8.5-10.1) Procalcitonin 0.12 ng/mL (0.00-0.10) Glucose (Fingerstick) 315 mg/dL (70-99) 299 mg/dL (70-99) 292 mg/dL (70-99) Test 12/02/18 16:26 12/02/18 20:39 Glucose (Fingerstick) 193 mg/dL (70-99) 152 mg/dL (70-99) Laboratory Tests Test 12/02/18 16:26 12/02/18 20:39 Glucose (Fingerstick) 193 mg/dL (70-99) 152 mg/dL (70-99) Assessment/Plan continue wound care as per wound team plans for dc tomorrow available as needed JOVAN AVILA APRN Dec 03, 2018 11:40
--- NOTE | 2018-12-03 12:04 | NUR ---
SW following for discharge planning. Discussed with RN, pt will be switched to PO abx and will follow with wound care center at [facility]. Pt does not have a primary care doctor and does not have a permanent location to stay. SW will continue to follow
[2018-12-03 15:00] VITALS: BP 115/62
[2018-12-03] MEDS: VANCOMYCIN PER PHARMACY MC PRN (15:31)
--- NOTE | 2018-12-03 18:38 | PN ---
DATE: 12/03/2018 SUBJECTIVE: The patient is resting flat, comfortably in bed, no apparent distress. On questioning her, she stated that her pain is much better controlled, has been up and about. The nursing staff did not voice any concern. She had an uneventful night. PHYSICAL EXAMINATION: GENERAL: When examined, she looked pale, no jaundice, cyanosis, or thyromegaly. No jugular venous distension. No lower limb edema. VITAL SIGNS: Her heart rate was 68, blood pressure 118/59, temperature was 98.6, respiratory rate was 18 and oxygen saturation was 96%. HEAD, EYES, EARS, NOSE AND THROAT: Normocephalic, atraumatic. NECK: Supple. HEART: Showed normal first and second sounds. No gallop, rub or murmur. CHEST: Clear to auscultation. No crepitation or rhonchi. ABDOMEN: Scaphoid, soft, nontender. NEUROLOGIC: She is awake, alert, oriented, responding appropriately. Cranial nerves intact. She moves extremities without difficulty. The wound in her inner thigh is covered with dressing. The skin rash seemed to be less prominent. Her intake and output were incompletely recorded. LABORATORY DATA: Showed a serum sodium 133, potassium 4.3, chloride 98, bicarbonate 25, anion gap of 10, BUN 24, creatinine 0.7, estimated GFR was 87 mL per minute. Her glucose was 146 and Hemoglobin A1c was 12.4%. Her total calcium was 8.7. ASSESSMENT: 1. Right groin abscess, status post incision and drainage for which she continues to be on IV vancomycin and meropenem. 2. Extensive rash with possible vasculitis. 3. Type 2 diabetes mellitus, seems to be suboptimally controlled. Her hemoglobin A1c was 12.4%. I did adjust her insulin yesterday. 4. Fibromyalgia. 5. History of intravenous drug use. PLAN: To continue with wound care and daily dressing. Continue with IV antibiotic. Her blood sugar is suboptimally controlled. I have adjusted her insulin; however, her blood sugar continued to be high. I will increase her Lantus to 20 units. ELEONORA GUERRA MD DR: KASSIDY/zohreh JOB#: [id number] / [id number]
[2018-12-03 19:15] VITALS: BP 108/55
[2018-12-03] MEDS ORDERED: diphenhydrAMINE HCL 25 MG CAPSULE PO PRN (20:15)
[2018-12-03] MEDS ORDERED: INSULIN GLARGINE 300 UNITS/3 ML INSULN.PEN. SQ SCH (21:00)
[2018-12-03] MEDS: LINEZOLID 600 MG TABLET PO SCH (21:50)
--- NOTE | 2018-12-03 21:50 | NUR ---
Pt's dressing changed at this time and pain meds administered, minimal drainage noted and pt tolerated well. Pt resting in bed and call light within reach, will continue to monitor.
--- NOTE | 2018-12-03 23:15 | NUR ---
Pt agitated and verbally aggressive towards [employer], pt refused for vitals to be checked at this time. Pt in bed, will continue to monitor.
[2018-12-04 04:21] VITALS: BP 148/76
[2018-12-04 05:07] LABS: CREATININE 0.9 mg/dL (0.6-1.0)
[2018-12-04 07:00] VITALS: BP 120/62
[2018-12-04] MEDS: LACTOBACILLUS RHAMNOSUS GG 1 CAPSULE. PO SCH (08:19)
[2018-12-04] MEDS: oxyCODONE/APAP 5/325 1 TAB TABLET PO PRN ×2 (08:20→14:41)
[2018-12-04] MEDS: LINEZOLID 600 MG TABLET PO SCH (08:20)
[2018-12-04] MEDS: INSULIN LISPRO 300 UNITS/3 ML INSULN.PEN. SQ SCH ×4 (08:32→12:33)
--- NOTE | 2018-12-04 08:32 | PDOC ---
Infectious Disease Note Subjective Subjective feeling good ROS ROS no n/v/d/sob Vital Sign Vital Signs Vital Signs Date Time Temp Pulse Resp B/P (MAP) Pulse Ox O2 Delivery O2 Flow Rate FiO2 12/04/18 04:21 84 18 148/76 (100) 98 Room Air 12/03/18 19:15 98.6 98.6 Physical Exam PHYSICAL EXAM GENERAL: Alert and oriented female, not in distress. VITAL SIGNS: Stable, afebrile. HEENT: NAD. NECK: Supple, no JVP, no lymphadenopathy. LUNGS: Clear. HEART: S1, S2 regular. ABDOMEN: Benign. EXTREMITIES: No edema, cyanosis. SKIN: groin wound is clean, seen with RN, induration improving NEUROLOGIC: Alert, awake female, no focal neurologic deficit. Labs Lab Laboratory Tests Test 12/03/18 11:21 12/03/18 16:34 12/03/18 21:09 12/04/18 04:30 Glucose (Fingerstick) 230 mg/dL (70-99) 155 mg/dL (70-99) 214 mg/dL (70-99) Creatinine 0.9 mg/dL (0.6-1.0) Estimated GFR (Cockcroft-Gault) 65.0 Micro Microbiology 12/01/18 Gram Stain - Final, Complete Objective Assessment Left groin abscess s/p I and D 12/01/18 Rash, ? vasculitis IVDU DM Fibromyalgia Plan Plan of Care d/c ok on doxy G stain and culture , staph supportive care ALLEN BA MD Dec 04, 2018 08:32
[2018-12-04] MEDS ORDERED: HYDR-2761 PO (08:36)
[2018-12-04] MEDS ORDERED: DOXY100C2 PO (08:36)
--- NOTE | 2018-12-04 08:41 | DISCH ---
DISCHARGE WITH HOME HEALTH DISCHARGE INFORMATION: Condition on Discharge: Stable CODE STATUS: Code Status: Full HOME HEALTH: Face to Face: I certify this patient is under my care and that I, or a nurse practitioner or physician's nurse's assistant working with me, had a face to face encounter that meets the physician face to face encounter requirements with this patient on []. [facility] For: Wound Care, Wound Vac Speech Language Pathology For: Other: POST DISCHARGE ORDERS: Activity Instructions for Disc: Resume previous activity DIET AFTER DISCHARGE: ADA CHECKS AFTER DISCHARGE: Checks after discharge: Check blood sugar, ac/hs, Check your Temp as needed FOLLOW-UP: Follow up with: wound clinic at [facility] CERTIFICATION STATEMENT: Certification Statement: Certification Statement: Based on the above finding, I certify that this patient is confined to the home and needs intermittent nursing home care, physical therapy and/or speech therapy, or continues to need occupational therapy.~ This patient is under my care, and I have initiated the establishment of the plan of care.~ This patient will be followed by myself or a community physician who will periodically review the plan of care. ELEONORA GUERRA MD Dec 04, 2018 08:41
--- NOTE | 2018-12-04 10:49 | NUR ---
SW following. Discussed with RN, pt needing home health upon discharge as doesn't have transportation to get to the wound clinic. Dr. Mullen agreed to be the following doctor in order for pt to receive home health care. [facility] will provide services to pt. RN notified. No further SW needs.
[2018-12-04 11:00] VITALS: BP 111/56
--- NOTE | 2018-12-04 14:19 | DS ---
DATE OF DISCHARGE: 12/04/2018 HOSPITAL COURSE: The patient is a 53-year-old female patient who was originally seen at [facility] and was transferred as she has left groin abscesses. She was seen by the infectious disease specialist, the surgical team as well as the wound care team. She underwent incision and drainage of her left thigh abscess. The culture has grown gram-positive cocci, the sensitivity still pending. She was treated with IV vancomycin. Her wound is healing nicely, and a decision was made to discharge her home with home health to continue with oral doxycycline and wound care with wound dressing changes every 2-3 days as per wound care team. Her blood sugar is suboptimally controlled, and I explained to her hemoglobin A1c is very high at 12.5% and that they have adjusted her insulin, has to follow and monitor her blood sugar closely. PHYSICAL EXAMINATION: GENERAL: When I examined her this morning, she was resting flat, comfortably in bed, no apparent distress. No pallor, jaundice, cyanosis or thyromegaly. No jugular venous distention. No lower limb edema. VITAL SIGNS: Her heart rate was 73, blood pressure was 120/62, temperature was 98.4, respiratory rate was 18 and oxygen saturation was 98%. HEAD, EYES, EARS, NOSE AND THROAT: Normocephalic, atraumatic. NECK: Supple. HEART: Showed normal first and second heart sounds. No gallop, rub or murmur. CHEST: Clear to auscultation. No crepitation or rhonchi. ABDOMEN: Distended, soft, nontender. NEUROLOGIC: She was awake, alert, responding appropriately. All cranial nerves appear intact. She moves extremities without difficulty. She ambulates without assistance or assistive device. Her left groin abscess healing nicely with healthy granulation tissue. DISCHARGE MEDICATIONS: She will be discharged home to continue on doxycycline 100 mg twice a day for 7 days as well as hydrocodone/APAP. She should also be on Lantus as well as Humalog insulin. FINAL DISCHARGE DIAGNOSES: 1. Left groin abscess. 2. Poorly controlled type 2 diabetes. Apparently, she has a previous episode of acute hepatitis B that was treated. 3. Bronchial asthma, osteoarthritis, fibromyalgia and peripheral neuropathy. ELEONORA GUERRA MD DR: KASSIDY/zohreh JOB#: [id number] / [id number]
--- NOTE | 2018-12-04 14:55 | NUR ---
Pt discharged home with services. Pt's significant other arrived at 1445 and then Pt left without letting nursing staff know. SECURITIES TELLER checked room at 1455 and Pt (all belongings included) and S.O were already gone. Discharge education and information regarding Dx provided to Pt prior to discharge; including wound care, DM care and new medications. Pt verbalized understanding and had no further questions. Dressing changed earlier today, wound measured and pictures taken. No other changes from previous assessment.
== END 2018-12-04 14:55 | disposition home health service (06) | DRG 602 ==
LOC: 4 NORTH 20:28
PROVIDERS: ADMIT Internal Medicine; ATTEND Internal Medicine
PROC: 0Y9D0ZZ Drainage of Left Upper Leg, Open Approach (ICD-10-PCS; principal; 2018-12-01 15:00)
DX: L02.214 Cutaneous abscess of groin (principal); E43 Unspecified severe protein-calorie malnutrition; M79.7 Fibromyalgia; F15.90 Other stimulant use, unspecified, uncomplicated; J45.909 Unspecified asthma, uncomplicated; E11.65 Type 2 diabetes mellitus with hyperglycemia; F12.90 Cannabis use, unspecified, uncomplicated; R21 Rash and other nonspecific skin eruption; B95.7 Other staphylococcus as the cause of diseases classified elsewhere; F17.210 Nicotine dependence, cigarettes, uncomplicated; E11.42 Type 2 diabetes mellitus with diabetic polyneuropathy; M19.90 Unspecified osteoarthritis, unspecified site; Z79.4 Long term (current) use of insulin; Z80.1 Family history of malignant neoplasm of trachea, bronchus and lung; Z86.14 Personal history of Methicillin resistant Staphylococcus aureus infection; Z87.440 Personal history of urinary (tract) infections; Z88.0 Allergy status to penicillin; Z88.1 Allergy status to other antibiotic agents
CPT/HCPCS: 36415; 80048; 80053; 80202; 82565; 82962; 83036; 84145; 85027; 87071; 87075; 87186; A7015; J0780; J1100; J1815; J2001; J2185; J2405; J2704; J3010; J3370; J3490; J7050; Q0163; J7030